=== PATIENT | female | born 1965 | race Caucasian/White ===

== ENCOUNTER → 2018-11-24 09:11 | Outpatient (CLI) | payer OTHER, SELFPAY ==
--- NOTE | 2018-11-24 | DI.US.S_ITS ---
PROCEDURE: US THYROID INDICATIONS: THYROID CYST TECHNIQUE: Real-time scanning was performed of the thyroid gland, with image documentation. COMPARISON: None. FINDINGS: Right: Thyroid lobe measures 5.2 x 1.5 x 1.8 cm, and contains 3 small nodules. The largest 2 are measured. It is otherwise homogeneous in echotexture. Left: Thyroid lobe measures 5.1 x 1.3 x 1.5 cm, and contains 2 small nodules, the larger one is measured. It is otherwise homogenous in echotexture. Isthmus: 4 mm thick. Nodule number: 1 Location: Right lower pole Size: 0.9 x 0.7 x 0.7 cm. Composition: Profoundly cystic Echogenicity: Hypoechoic Shape: wider than tall. Margins: Smooth Echogenic foci: Punctate Total points: 5 ACR TI-RADS category: Moderately suspicious Nodule number: 2 Location: Right middle pole anterior Size: 0.4 x 0.3 x 0.3 cm. Composition: Cystic Echogenicity: Anechoic Shape: wider than tall. Margins: Smooth Echogenic foci: Comet tail artifacts Total points: 3 ACR TI-RADS category: Mildly suspicious Nodule number: 3 Location: Left middle pole Size: 0.4 x 0.2 x 0.3 cm. Composition: Cystic Echogenicity: Anechoic Shape: wider than tall. Margins: Smooth Echogenic foci: Peripheral calcifications/tail to artifact Total points: 3 ACR TI-RADS category: Mildly suspicious IMPRESSION: Multinodular thyroid. All nodules are subcentimeter. According to the TI-RADS categories listed below, none of the nodules are large enough to require FNA or followup ultrasound at the current time. ACR TI-RADS definitions and recommendations: TI-RADS 1 (benign): 0 points. FNA not needed. TI-RADS 2 (not suspicious): 2 points. FNA not needed. TI-RADS 3 (mildly suspicious): 3 points. * FNA if 2.5 cm or larger, follow up if 1.5 cm or larger (at 1, 3, and 5 years). TI-RADS 4 (moderately suspicious): 4-6 points. * FNA if 1.5 cm or larger, follow up if 1 cm or larger (at 1, 2, 3, and 5 years). TI-RADS 5 (highly suspicious): 7 points or more. * FNA if 1 cm or larger, follow up if 0.5 cm or larger (every year for 5 years). Dictated by: Goran Rashid M.D. on 11/24/2018 at 13:09 Approved by: Goran Rashid M.D. on 11/24/2018 at 13:49
--- NOTE | 2018-11-24 | DI.MG.S_ITS ---
BILATERAL DIGITAL SCREENING MAMMOGRAM 3D/2D WITH CAD WITH AUGMENTATION: 11/24/2018 CLINICAL: Routine screening. Comparison is made to exams dated: 02/26/2017 mammogram, 10/03/2013 mammogram, and 06/24/2011 mammogram - [facility]. The tissue of both breasts is heterogeneously dense. This may lower the sensitivity of mammography. Current study was also evaluated with a Computer Aided Detection (CAD) system. Bilateral breast implants are present. No significant masses, calcifications, or other findings are seen in either breast. There has been no significant interval change. IMPRESSION: NEGATIVE There is no mammographic evidence of malignancy. A 1 year screening mammogram is recommended. This exam was interpreted at Station ID: [id number]. NOTE: For mammograms, a report in lay terms will be sent to the patient. Approximately 15% of breast malignancies will not be visualized mammographically. In the management of a palpable breast mass, a negative mammogram must not discourage biopsy of a clinically suspicious lesion. Electronically Signed By: Aristeo schaefer/angeline:11/25/2018 12:55:31 letter sent: Normal Exam ACR BI-RADS Category 1: Negative 3341F
== END ==
PROVIDERS: Visit Provider Nurse Practitioner Family
DX: Z12.31 Encounter for screening mammogram for malignant neoplasm of breast (principal); E04.2 Nontoxic multinodular goiter; M81.0 Age-related osteoporosis without current pathological fracture; Z78.0 Asymptomatic menopausal state; E28.39 Other primary ovarian failure; Z90.722 Acquired absence of ovaries, bilateral
CPT/HCPCS: 76536; 77063; 77067; 77080

== ENCOUNTER → 2021-04-24 08:06 | Outpatient (CLI) | payer OTHER, SELFPAY ==
--- NOTE | 2021-04-24 | DI.US.S_ITS ---
PROCEDURE: US THYROID INDICATIONS: THYROID NODULES TECHNIQUE: Real-time scanning was performed of the thyroid gland, with image documentation. COMPARISON: [facility], US, US THYROID, 11/24/2018, 9:46. FINDINGS: Right: Thyroid lobe measures 5.5 x 2.0 x 1.3 cm, and is homogeneous in echotexture. Left: Thyroid lobe measures 4.9 x 1.5 x 1.3 cm, and is homogenous in echotexture. Isthmus: 3.1 mm thick. Nodule number: 1 Location: Right mid thyroid Size: 1.2 x 0.9 x 0.8 cm. Composition: Solid Echogenicity: Hypoechoic Shape: wider than tall. Margins: Smooth Echogenic foci: Punctate Total points: 7 ACR TI-RADS category: 5 Recommendations: Fine-needle aspiration. Nodule number: 2 Location: Right inferior thyroid Size: 0.6 x 0.5 x 0.2 cm. Composition: Solid Echogenicity: Isoechoic Shape: wider than tall. Margins: Smooth Echogenic foci: None Total points: 3 ACR TI-RADS category: 3 Recommendations: Follow-up imaging at 1, 3, and 5 years. IMPRESSION: 1. TIRADS 5 lesion within the right mid thyroid. Fine needle aspiration is recommended. 2. Follow-up of the TIRADS 3 lesion within the right thyroid is recommended as above. Dictated by: Kristan Glass M.D. on 04/24/2021 at 11:06 Approved by: Kristan Glass M.D. on 04/24/2021 at 11:08
== END ==
PROVIDERS: PCP Nurse Practitioner Family; Referring Provider Nurse Practitioner Family; Visit Provider Nurse Practitioner Family
DX: E04.2 Nontoxic multinodular goiter (principal)
CPT/HCPCS: 76536

== ENCOUNTER → 2021-05-09 14:35 | Outpatient (CLI) | payer OTHER, SELFPAY ==
--- NOTE | 2021-05-09 | DI.US.S_ITS ---
PROCEDURE: US FINE NEEDLE ASPIRATION INDICATIONS: nontoxic single thyroid goiter TECHNIQUE: The indications, alternatives, benefits, risks, and complications of the procedure were explained to the patient. Written informed consent was obtained and placed in the chart. The thyroid region was examined sonographically and a site was chosen for ultrasound guided percutaneous sampling. The skin was prepared and draped in the usual fashion, and anesthetized with 1% lidocaine infiltrated from the skin down to the thyroid gland. Multiple passes were then performed, with contents emptied into an appropriate pathology specimen container. A bandage was applied to the area of access at completion of the study. COMPARISON: None. FINDINGS: Location(s) of lesion(s) sampled: Right mid lobe [place]: 22 and 25 gauge hypodermic needles. Number of passes: 12 passes Medications: 1% lidocaine for local anaesthesia. Complications: None. IMPRESSION: Successful ultrasound-guided thyroid nodule fine needle aspiration, with cytology results pending. Please see chart below for management recommendations based on cytology results. [place] [facility] ReportingRecommendationsNon-diagnostic* Repeat US-guided FNA, with on-site cytology evaluation if possible. * Repeated non-diagnostic nodules without high suspicion US features: close observation vs surgical consult. * Consider surgery if nodule has high suspicion US features, grows >20% in 2 dimensions on followup, or patient has clinical risk factors for malignancy. Benign* If nodule has high suspicion US features: repeat US and FNA within 12 months. * If nodule has low to intermediate suspicion US features: repeat US at 12-24 months. If nodule grows (20% increase in at least 2 dimensions, with minimal increase of 2 mm or >50% change in volume), or development of new suspicious US features, then repeat FNA or continue followup. * If nodule has very low suspicion US features: followup US at >24 months. Atypia of undetermined significance, follicular lesion of undetermined significanceRepeat FNA, molecular testing, followup US, or surgical consult.Follicular neoplasm, suspicious for follicular neoplasmSurgical consult; also consider molecular testing. Suspicious for malignancySurgical consult.MalignantSurgical consult. Dictated by: Oscar Celis M.D. on 05/10/2021 at 9:05 Approved by: Oscar Celis M.D. on 05/10/2021 at 9:06
--- NOTE | 2021-05-09 | PATH_ITS ---
Note [facility] Accession Number: [id number] TESTS RESULT FLAG UNITS REF RANGE LAB Clinician Provided Cytology Information No. of containers..00 Previously Prepared Cytology Slide 35 Unknown Storage/container code(s) Source: RIGHT THYROID NODULE DIAGNOSIS: RIGHT THYROID NODULE NEGATIVE FOR MALIGNANT CELLS. [place] CATEGORY II. SPECIMEN CONSISTS OF BENIGN FOLLICULAR CELLS, HEMOSIDERIN-LADEN MACROPHAGES, COLLOID, AND BLOOD. THIS PATTERN IS CONSISTENT WITH A BENIGN FOLLICULAR NODULE. Pathologist ICD10: 02 E04.1 Clinical history: 01 Right: Thyroid lobe measures 5.5 x 2.0 x 1.3 cm, and is homogeneous in echotexture. Left: Thyroid lobe measures 4.9 x 1.5 x 1.3 cm, and is homogenous in echotexture. Isthmus: 3.1 mm thick. 1. TIRADS 5 lesion within the right mid thyroid. Fine needle aspiration is recommended. 2. Follow-up of the TIRADS 3 lesion within the right thyroid is recommended as above. Signed out by: Ирина Cristobal MD, Pathologist NPI- [id number] Performed by: Kenneth Braga, Dental Instrument Maker ([facility]) Gross description: 01 30 CC, RED, CLEAR RECIEVED: IN CYTOLYT WITH 10 ALCOHOL FIXED AND 10 QUICK STAINED SLIDES ALSO 1 RNA VIAL WAS RECEIVED FOR FURTHER TESTING. /VDU 05/10/2021 [id number] [facility] FLAG LEGEND: L-Low Normal,H-High Normal,LL-Alert Low,HH-Alert High <-Panic Low,>-Panic High,A-Abnormal,AA-Critical Abnormal Performed at: 01 =[facility] [address], [place] [address] Rubio Hutchinson MD, 02 [facility] [place] [address] [place] [id number] Zeenat Trotter MD, Performed at: 01 [facility] Cytology [address], [place], [place] [id number] MD Rubio Hutchinson MD Phone: [phone]
== END ==
PROVIDERS: PCP Nurse Practitioner Family; Referring Provider Nurse Practitioner Family; Visit Provider Nurse Practitioner Family
DX: E04.1 Nontoxic single thyroid nodule (principal)
CPT/HCPCS: 10005

== ENCOUNTER → 2021-07-11 12:42 | Outpatient (CLI) | payer OTHER, SELFPAY ==
--- NOTE | 2021-07-11 | DI.US.S_ITS ---
PROCEDURE: US RETROPERITONEAL COMP INDICATIONS: CONCERN FOR KIDNEY STONES TECHNIQUE: Real-time scanning was performed of the kidneys and bladder, with image documentation. COMPARISON: None. FINDINGS: Kidneys: Kidneys are normal in size. Right kidney measures 11.4 cm long; left kidney measures 11.7 cm long. Right renal cortical thickness is 1.3 cm; left renal cortical thickness is 1.2 cm. Renal cortical echotexture is normal. No hydronephrosis or nephrolithiasis. No suspicious solid mass lesions. Bladder: Pre-void bladder volume is 457 mL. Post-void residual is 40 mL. Pre-void images demonstrate no intraluminal masses or stones. On pre-void images, both the right and left ureteral jets are noted with color Doppler interrogation. (Of note, ureteral jets may not be detectable in up to 25% of cases due to insufficient differences in specific gravity between ureteral and bladder urine). Miscellaneous: No free pelvic fluid. IMPRESSION: Normal renal sonogram. No renal stones or hydronephrosis. Urinary bladder is sonographically normal. Dictated by: Zainab Tracey MD, PhD on 07/11/2021 at 16:30 Approved by: Zainab Tracey MD, PhD on 07/11/2021 at 16:31
[2021-07-11 15:12] LABS: BUN Creatinine Ratio 22.1 (6-22); Blood Urea Nitrogen 15 mg/dL (7-17); Calcium 9.4 mg/dL (8.4-10.2); Carbon Dioxide 32 mmol/L (22-32); Chloride 101 mmol/L (98-107); Estimated Glomerular Filt Rate > 60.0 mL/min (>60); Glucose 51 mg/dL (70-100); HEMOLYSIS < 15 (0-50); Potassium 4.5 mmol/L (3.4-5.1); Sodium 138 mmol/L (137-145)
== END ==
PROVIDERS: PCP Nurse Practitioner Family; Referring Provider Nurse Practitioner Family; Visit Provider Nurse Practitioner Family
DX: R31.0 Gross hematuria (principal); R30.0 Dysuria; Z01.818 Encounter for other preprocedural examination; M81.0 Age-related osteoporosis without current pathological fracture
CPT/HCPCS: 36415; 76770; 80048

== ENCOUNTER → 2021-08-01 10:49 | Outpatient (CLI) | payer OTHER, SELFPAY ==
--- NOTE | 2021-08-01 | DI.MG.S_ITS ---
BILATERAL DIGITAL SCREENING MAMMOGRAM 3D/2D WITH CAD WITH AUGMENTATION: 08/01/2021 CLINICAL: Patient presents for routine screening. S/P bilateral augmentation. Family history of breast cancer. Comparison is made to exams dated: 11/24/2018 mammogram - [facility], 02/26/2017 mammogram, and 10/03/2013 mammogram - [facility]. The tissue of both breasts is heterogeneously dense. This may lower the sensitivity of mammography. Current study was also evaluated with a Computer Aided Detection (CAD) system. Bilateral breast implants are present. No significant masses, calcifications, or other findings are seen in either breast. There has been no significant interval change. IMPRESSION: NEGATIVE There is no mammographic evidence of malignancy. A 1 year screening mammogram is recommended. This exam was interpreted at Station ID: [id number]. NOTE: For mammograms, a report in lay terms will be sent to the patient. Approximately 15% of breast malignancies will not be visualized mammographically. In the management of a palpable breast mass, a negative mammogram must not discourage biopsy of a clinically suspicious lesion. Electronically Signed By: Jonn Osman M.D., jr/angeline:08/01/2021 11:19:36 letter sent: Normal Exam ACR BI-RADS Category 1: Negative 3341F
== END ==
PROVIDERS: PCP Nurse Practitioner Family; Referring Provider Nurse Practitioner Family; Visit Provider Nurse Practitioner Family
DX: Z12.31 Encounter for screening mammogram for malignant neoplasm of breast (principal); Z80.3 Family history of malignant neoplasm of breast; Z98.82 Breast implant status
CPT/HCPCS: 77063; 77067

== ENCOUNTER → 2022-08-28 11:57 | Outpatient (CLI) | payer OTHER, SELFPAY ==
--- NOTE | 2022-08-28 | DI.MG.S_ITS ---
BILATERAL DIGITAL SCREENING MAMMOGRAM 3D/2D WITH CAD WITH AUGMENTATION: 08/28/2022 CLINICAL: Patient presents for routine screening. S/P bilateral augmentation. Family history of breast cancer. Comparison is made to exams dated: 08/01/2021 mammogram, 11/24/2018 mammogram - [facility], and 02/26/2017 mammogram - [facility]. Both breasts are heterogeneously dense, which may obscure small masses (category c / 51-75% glandular tissue). Current study was also evaluated with a Computer Aided Detection (CAD) system. Bilateral breast implants are stable. No significant masses, calcifications, or other findings are seen in either breast. There has been no significant interval change. IMPRESSION: NEGATIVE There is no mammographic evidence of malignancy. A 1 year screening mammogram is recommended. Based on the Tyrer Cuzick model (a risk assessment model) the patient's lifetime risk is 7.6% and her 10 year risk is 2.2%. According to the ACR, ACS, and NCCN guidelines, an annual breast MRI exam along with mammogram is recommended if the patient's lifetime risk is 20% or greater. This exam was interpreted at Station ID: [id number]. NOTE: For mammograms, a report in lay terms will be sent to the patient. Approximately 15% of breast malignancies will not be visualized mammographically. In the management of a palpable breast mass, a negative mammogram must not discourage biopsy of a clinically suspicious lesion. Electronically Signed By: Leo olsen/angeline:08/28/2022 13:07:33 letter sent: Normal Exam ACR BI-RADS Category 1: Negative 3341F
--- NOTE | 2022-08-28 | DI.US.S_ITS ---
PROCEDURE: US RENAL COMPLETE INDICATIONS: UTI WITHOUT HEMATURIA TECHNIQUE: Real-time scanning was performed of the kidneys and bladder, with image documentation. COMPARISON: None. FINDINGS: Kidneys: Kidneys are normal in size. Right kidney measures 11.3 cm long; left kidney measures 11.1 cm long. Right renal cortical thickness is 0.8 cm; left renal cortical thickness is 0.9 cm. Renal cortical echotexture is normal. No hydronephrosis or nephrolithiasis. No suspicious solid mass lesions. Bladder: Pre-void bladder volume is 440 mL. Post-void residual is 32 mL. Pre-void images demonstrate no intraluminal masses or stones. On pre-void images, bilateral ureteral jets are noted with color Doppler interrogation. (Of note, ureteral jets may not be detectable in up to 25% of cases due to insufficient differences in specific gravity between ureteral and bladder urine). Miscellaneous: No free pelvic fluid. IMPRESSION: Normal ultrasound the kidneys Approved by: Juan Oreilly M.D. on 08/28/2022 at 19:43
== END ==
PROVIDERS: PCP Nurse Practitioner Family; Referring Provider Urology; Visit Provider Urology
DX: N39.0 Urinary tract infection, site not specified (principal); Z12.31 Encounter for screening mammogram for malignant neoplasm of breast; Z80.3 Family history of malignant neoplasm of breast; Z98.82 Breast implant status
CPT/HCPCS: 76770; 77063; 77067

== ENCOUNTER → 2023-10-27 16:33 | Outpatient (CLI) | payer OTHER, SELFPAY ==
--- NOTE | 2023-10-27 16:33 | DI.US.S_ITS ---
PROCEDURE: US THYROID INDICATIONS: Nontoxic multinodular goiter TECHNIQUE: Real-time scanning was performed of the thyroid gland, with image documentation. COMPARISON: [facility], US, US THYROID, 04/24/2021, 8:38. FINDINGS: Thyroid: Right lobe measures 4.6 x 1.6 x 1.6 cm. Left lobe measures 4.5 x 1.9 x 1.3 cm. Isthmus is 0.4 cm thick. Echotexture is homogeneous. Nodule number: 1 Location: Right inferior pole Size: 0.8 x 0.8 x 1.0 cm, previously 1.2 x 0.8 x 0.9 cm. Composition: Partially solid Echogenicity: Isoechoic and anechoic Shape: wider than tall. Margins: Smooth Echogenic foci: Punctate with small comet tail artifacts Total points: Five ACR TI-RADS category: Moderately suspicious, previously sampled. Nodule number: 2 Location: Right inferior pole Size: 0.5 cm. Composition: Cystic Total points: 0 ACR TI-RADS category: One, benign Nodule number: 3 Location: Left midpole Size: 0.5 cm. Composition: Cystic containing colloid Total points: 0 ACR TI-RADS category: One, benign IMPRESSION: Decreased size of previously sampled right inferior pole nodule. Correlate with prior results. Subcentimeter cystic nodules in each lobe appear benign. ACR TI-RADS definitions and recommendations: TI-RADS 1 (benign): 0 points. FNA not needed. TI-RADS 2 (not suspicious): 2 points. FNA not needed. TI-RADS 3 (mildly suspicious): 3 points. * FNA if 2.5 cm or larger, follow up if 1.5 cm or larger (at 1, 3, and 5 years). TI-RADS 4 (moderately suspicious): 4-6 points. * FNA if 1.5 cm or larger, follow up if 1 cm or larger (at 1, 2, 3, and 5 years). TI-RADS 5 (highly suspicious): 7 points or more. * FNA if 1 cm or larger, follow up if 0.5 cm or larger (every year for 5 years). Dictated by: Melisa Thorne M.D. on 10/28/2023 at 8:51 Approved by: Melisa Thorne M.D. on 10/28/2023 at 9:05
== END ==
PROVIDERS: PCP Nurse Practitioner Family; Referring Provider Physician Assistant; Visit Provider Physician Assistant
DX: E04.2 Nontoxic multinodular goiter (principal)
CPT/HCPCS: 76536

== ENCOUNTER → 2025-06-18 09:04 | Outpatient (CLI) | payer OTHER, SELFPAY ==
--- NOTE | 2025-06-18 | DI.MRI.S_ITS ---
PROCEDURE: MR HEAD/BRAIN WO/W CON INDICATIONS: Persistent/progressive unilateral dysthesia effect TECHNIQUE: Noncontrast axial T1 spin echo, axial T2 fast spin echo, sagittal and axial FLAIR, coronal T2 fast spin echo, axial gradient echo, axial diffusion and ADC through the brain. After the administration of contrast, axial and coronal and sagittal 3D VIBE or T1 spin echo with fat saturation through the brain. COMPARISON: None. FINDINGS: Image quality: Excellent. CSF Spaces: Basal cisterns are patent. No extra-axial fluid collections. Ventricles are normal in size and shape. Brain: No midline shift. No intracranial bleeds or masses. No abnormal intracranial enhancement. The brainstem appears normal. Diffusion-weighted images demonstrate no acute infarct. No chronic ischemic insults. Normal intravascular flow voids are present. Skull and face: Calvarial marrow is normal in signal. Orbits appear normal. Sinuses: Sinuses and mastoids appear clear. IMPRESSION: Unremarkable MRI of the brain with without contrast Approved by: Juan Oreilly M.D. on 06/19/2025 at 12:03
== END ==
LOC: MRI 09:06
PROVIDERS: PCP Physician Assistant; Referring Provider Physician Assistant; Visit Provider Physician Assistant
DX: R20.2 Paresthesia of skin (principal); R20.0 Anesthesia of skin; R20.8 Other disturbances of skin sensation
CPT/HCPCS: 70553; A9579